=== PATIENT | female | born 1970 | race Caucasian/White ===

== ENCOUNTER 2019-10-02 15:03 | Emergency (ER) | payer SELFPAY ==
[2019-10-02] MEDS ORDERED: NAPROXEN 250 MG TABLET PO ONE (15:23)
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
[2019-10-02 15:50] LABS: ABSOLUTE NEUTROPHIL COUNT 5.03; HEMATOCRIT 38.4 % (35.0-47.0); HEMOGLOBIN 12.5 gm/dl (11.6-16.0); MEAN CELL VOLUME 94.8 fl (81-97); MEAN CORPUSCULAR HEMOGLOBIN 30.9 pg (27-33); MEAN CORPUSCULAR HGB CONC 32.6 g/dl (32-36); MEAN PLATELET VOLUME 10.7 fl (7.4-10.4); PLATELET COUNT 230 K/uL (130-400); RED BLOOD COUNT 4.05 M/uL (3.80-5.40); RED CELL DISTRIBUTION WIDTH 13.6 % (11.5-14.5); WHITE BLOOD COUNT W/O DIFF 9.7 K/uL (4.2-12.2)
[2019-10-02 16:01] LABS: BLOOD UREA NITROGEN 8 mg/dL (6-20)
[2019-10-02 16:02] LABS: CREATININE 0.6 mg/dL (0.5-0.9); EST GLOMERULAR FILTRATION RATE > 60 mL/min; TOTAL PROTEIN 6.4 g/dL (6.6-8.7)
[2019-10-02 16:04] LABS: GLUCOSE,RANDOM 160 mg/dL (74-109)
[2019-10-02 16:07] LABS: ALB/GLOB RATIO 1.7 (1.1-1.8); ALKALINE PHOSPHATASE 72 U/L (35-104); ALT/SGPT 10 U/L (<33); AST/SGOT 15 U/L (10.0-35.0); C-REACTIVE PROTEIN 0.05 mg/dL (<0.5)
== END 2019-10-02 16:40 | disposition home or self-care (01) ==
LOC: ER 15:03
DX: M79.672 Pain in left foot (principal); M79.671 Pain in right foot; F17.210 Nicotine dependence, cigarettes, uncomplicated
CPT/HCPCS: 80053; 85027; 86140; 99283